=== PATIENT | male | born 1985 | race Hispanic/Latino ===

== ENCOUNTER 2018-05-21 09:05 | Emergency (ER) | payer SELFPAY ==
[~2018-05-21] VITALS: Ht 170.2 cm; Wt 80.0 kg
[2018-05-21] MEDS ORDERED: CLEOCIN300 MG PO ×2 (09:33→09:34)
[2018-05-21 09:56] VITALS: BP 137/81
== END 2018-05-21 10:00 | disposition home or self-care (01) | DRG 605 ==
LOC: ED 09:05
PROC: 0HQGXZZ Repair Left Hand Skin, External Approach (ICD-10-PCS; principal; 2018-05-21)
DX: S61.215A Laceration without foreign body of left ring finger without damage to nail, initial encounter (principal); W31.2XXA Contact with powered woodworking and forming machines, initial encounter; Y93.89 Activity, other specified; Y92.9 Unspecified place or not applicable